=== PATIENT | female | born 1995 | race Caucasian/White ===

== ENCOUNTER 2019-10-30 16:38 | Emergency (ER) | payer MEDICAID, OTHER ==
[~2019-10-30] VITALS: Ht 157.5 cm; Wt 91.4 kg
[~2019-10-30 16:38] MED LIST: HYDR-4383 PO
[2019-10-30 16:52] VITALS: BP 141/93
[2019-10-30] MEDS ORDERED: dexamethasone 4mg/ml inj PO SCH (17:20)
[2019-10-30] MEDS ORDERED: ketorolac tromethamine 15mg/ml inj. IM ONE (17:25)
[2019-10-30] MEDS ORDERED: dexamethasone 4mg tablet PO ONE (17:40)
[2019-10-30] MEDS ORDERED: HYDROcodone/acetaminophen 5mg/325mg tablet PO ONE (17:50)
[2019-10-30] MEDS ORDERED: [UNRECOGNIZED DRUG - CODE] PO (17:56)
[2019-10-30] MEDS ORDERED: COD30T PO (19:27)
== END 2019-10-30 18:16 | disposition home or self-care (01) ==
LOC: ER 16:39
DX: J02.9 Acute pharyngitis, unspecified (principal); G43.909 Migraine, unspecified, not intractable, without status migrainosus; Z79.899 Other long term (current) drug therapy
CPT/HCPCS: 99283

== ENCOUNTER 2019-11-12 21:54 | Emergency (ER) | payer OTHER ==
[~2019-11-12] VITALS: Ht 157.5 cm; Wt 90.9 kg
[~2019-11-12 21:54] MED LIST changes: +[UNRECOGNIZED DRUG - CODE] PO
[2019-11-12 22:05] VITALS: BP 198/120
--- NOTE | 2019-11-12 22:15 | NUR ---
Patient is laying on gurey, quite emotional due to painful right big ingrown toe nail.
[2019-11-12] MEDS ORDERED: ondansetron 4mg rapidly disintigrating tab PO ONE (22:20)
[2019-11-12] MEDS ORDERED: clindamycin 150mg capsule PO ONE (22:35)
[2019-11-12] MEDS ORDERED: ibuprofen tablet 400 MG TABLET PO ONE (22:35)
[2019-11-12] MEDS ORDERED: CLIN150C8 PO (22:37)
--- NOTE | 2019-11-12 23:29 | NUR ---
with patient giving digital block of right big toe
[2019-11-13] MEDS ORDERED: acetaminophen 325mg tablet PO ONE (00:05)
[2019-11-13] MEDS ORDERED: bacitracin 15gm ointment TP ONE (00:05)
== END 2019-11-13 00:24 | disposition home or self-care (01) ==
LOC: ER 21:55
DX: L60.0 Ingrowing nail (principal); L03.031 Cellulitis of right toe; G43.909 Migraine, unspecified, not intractable, without status migrainosus; Z79.2 Long term (current) use of antibiotics; Z79.899 Other long term (current) drug therapy
CPT/HCPCS: 11730; 99284; 99285

== ENCOUNTER 2019-11-29 23:01 | Emergency (ER) | payer OTHER ==
[~2019-11-29] VITALS: Ht 157.5 cm; Wt 88.2 kg
[~2019-11-29 23:01] MED LIST changes: +CLIN150C8 PO
--- NOTE | 2019-11-29 23:06 | NUR ---
jason pa in triage assessing patient
[2019-11-29] MEDS ORDERED: proCHLORperazine 10 MG/2 ml inj IV ONE (23:20)
[2019-11-29] MEDS ORDERED: ketorolac tromethamine 15mg/ml inj. IV ONE (23:20)
[2019-11-29] MEDS ORDERED: normal saline 1000ML IV soln IVB ONE (23:20)
[2019-11-29] MEDS ORDERED: diphenhydrAMINE 50 mg/ml inj IV ONE (23:20)
[2019-11-29 23:42] LABS: BASOPHILS # (AUTO) 0.1 X10'3 (0-0.2); EOSINOPHILS # (AUTO) 0.2 X10'3 (0-0.9); EOSINOPHILS % (AUTO) 1.6 % (0-6); HEMOGLOBIN 14.8 g/dl (12.0-16.0); LYMPHOCYTES # (AUTO) 3.4 X10'3 (1.1-4.8); LYMPHOCYTES % (AUTO) 33.5 % (21-51); MEAN CORPUSCULAR HGB CONC 33.8 g/dL (33.0-36.5); MEAN CORPUSCULAR VOLUME 82.8 FL (78-98); MEAN PLATELET VOLUME 8.5 FL (7.4-10.4); MONOCYTES # (AUTO) 0.7 X10'3 (0-0.9); MONOCYTES % (AUTO) 6.9 % (2-12); NEUTROPHILS # (AUTO) 5.7 X10'3 (1.8-7.7); PLATELET COUNT 269 X10'3 (140-440); RED BLOOD COUNT 5.31 X10'6 (4.20-5.60); RED CELL DISTRIBUTION WIDTH 15.6 % (11.5-14.5); WHITE BLOOD COUNT 10.1 X10'3 (4.5-11.0)
[2019-11-29 23:57] LABS: ALANINE AMINOTRANSFERASE 26 U/L (12-78); ALBUMIN 3.4 G/DL (3.4-5.0); ALBUMIN/GLOBULIN RATIO 0.9 (1.1-1.5); ALKALINE PHOSPHATASE 69 IU/L (46-116); ANION GAP 12 (8-16); ASPARTATE AMINO TRANSFERASE 14 U/L (10-37); BILIRUBIN,TOTAL 0.3 MG/DL (0.1-1.0); BLOOD UREA NITROGEN 10 MG/DL (7-18); BUN/CREATININE RATIO 10.5 (6.6-38.0); CALCIUM 8.7 MG/DL (8.5-10.1); CHLORIDE 110 MMOL/L (99-107); CREATININE 0.95 MG/DL (0.40-0.90); GLUCOSE 92 MG/DL (70-104); POTASSIUM 3.3 MMOL/L (3.5-5.1); SODIUM 142 MMOL/L (135-145); TOTAL CARBON DIOXIDE 19.8 MMOL/L (24-32); TOTAL PROTEIN 7.1 G/DL (6.4-8.2); eGFR 72 ML/MIN
[2019-11-30 00:01] LABS: TROPONIN I < 0.04 NG/ML (0.0-0.05)
[2019-11-30 00:20] VITALS: BP 109/70
== END 2019-11-30 00:21 | disposition home or self-care (01) ==
LOC: ER 23:02
DX: G43.909 Migraine, unspecified, not intractable, without status migrainosus (principal); R07.89 Other chest pain; Z79.899 Other long term (current) drug therapy
CPT/HCPCS: 36415; 80053; 84484; 85025; 93005; 96374; 96375; 99284; J0780; J1200; J1885; J7030

== ENCOUNTER 2020-03-11 23:41 | Emergency (ER) | payer OTHER ==
[~2020-03-11] VITALS: Ht 157.5 cm; Wt 86.5 kg
[2020-03-12] MEDS ORDERED: proCHLORperazine 10 MG/2 ml inj IV ONE (00:55)
[2020-03-12] MEDS ORDERED: SUMAtriptan succ. 6 MG/0.5ml vial SQ ONE (00:55)
[2020-03-12] MEDS ORDERED: normal saline 1000ML IV soln IVB ONE (00:55)
[2020-03-12] MEDS ORDERED: diphenhydrAMINE 50 mg/ml inj IV ONE (00:55)
[2020-03-12] MEDS ORDERED: ketorolac trometh. 30mg/ml inj. IV ONE (00:55)
[2020-03-12] MEDS ORDERED: SUMA100T PO (02:13)
[2020-03-12 02:29] VITALS: BP 154/57
== END 2020-03-12 02:30 | disposition home or self-care (01) ==
LOC: ER 23:42
DX: G43.909 Migraine, unspecified, not intractable, without status migrainosus (principal); Z79.2 Long term (current) use of antibiotics; Z79.899 Other long term (current) drug therapy
CPT/HCPCS: 96372; 96374; 96375; 99284; J0780; J1200; J1885; J7030; J3030

== ENCOUNTER 2020-04-08 15:12 | Emergency (ER) | payer OTHER ==
[~2020-04-08] VITALS: Ht 157.5 cm; Wt 83.9 kg
[~2020-04-08 15:12] MED LIST changes: +SUMA100T PO
--- NOTE | 2020-04-08 15:34 | NUR ---
PATIENT STATES CONSTANT BURNING PAIN TO RIGHT SIDE OF NECK AND NUMBNESS IN RIGHT ARM.
[2020-04-08] MEDS ORDERED: morphine 10mg/ml inj. IV ONE (15:40)
[2020-04-08] MEDS ORDERED: ondansetron/PF 4mg/2ml inj IV ONE (15:40)
--- NOTE | 2020-04-08 16:17 | NUR ---
PATIENT IS RESTING ON GURNEY. DRESSED IN GOWN AND READY FOR MRI. NO METAL OR JEWELRY ON PATIENT. MRI STAFF HERE TO TAKE PATIENT FOR MRI SCANS PER [facility]. HARD C-COLLAR INTACT.
[2020-04-08 16:19] LABS: HCG SERUM QL NEGATIVE
--- NOTE | 2020-04-08 16:19 | NUR ---
out for MRI
[2020-04-08] MEDS ORDERED: oxyCODONE/APAP 5-325mg tablet PO ONE (17:55)
[2020-04-08] MEDS ORDERED: CYCL-1 PO (18:11)
[2020-04-08] MEDS ORDERED: HYDR-4383 PO (18:11)
[2020-04-08] MEDS ORDERED: ketorolac tromethamine 15mg/ml inj. IV ONE (18:15)
[2020-04-08] MEDS ORDERED: LIDOcaine 5% patch TP ONE (18:15)
[2020-04-08 18:44] VITALS: BP 159/104
== END 2020-04-08 18:45 | disposition home or self-care (01) ==
LOC: ER 15:13
DX: S09.90XA Unspecified injury of head, initial encounter (principal); S13.9XXA Sprain of joints and ligaments of unspecified parts of neck, initial encounter; S23.9XXA Sprain of unspecified parts of thorax, initial encounter; G43.909 Migraine, unspecified, not intractable, without status migrainosus; Z79.899 Other long term (current) drug therapy; X58.XXXA Exposure to other specified factors, initial encounter; Y93.89 Activity, other specified; Y92.89 Other specified places as the place of occurrence of the external cause; Y99.8 Other external cause status
CPT/HCPCS: 36415; 70551; 71045; 72141; 72146; 84703; 96374; 96375; 99285; J1885; J2270; J2405; 99284

== ENCOUNTER 2020-08-20 16:21 | Emergency (ER) | payer OTHER, MEDICAID ==
[~2020-08-20] VITALS: Ht 157.5 cm; Wt 80.2 kg
[~2020-08-20 16:21] MED LIST changes: +CYCL-1 PO; -SUMA100T PO
[2020-08-20] MEDS ORDERED: baclofen 10mg tablet PO ONE (17:30)
[2020-08-20] MEDS ORDERED: acetaminophen 325mg tablet PO ONE (17:30)
[2020-08-20] MEDS ORDERED: BACL-11 PO (17:33)
[2020-08-20 17:58] VITALS: BP 130/88
== END 2020-08-20 18:00 | disposition home or self-care (01) ==
LOC: ER 16:22
DX: R68.84 Jaw pain (principal); G43.909 Migraine, unspecified, not intractable, without status migrainosus; Z87.448 Personal history of other diseases of urinary system; Z79.899 Other long term (current) drug therapy
CPT/HCPCS: 99283